=== PATIENT | male | born 1930 | race Caucasian/White ===

== ENCOUNTER 2018-11-22 23:36 | Inpatient (IN) | payer MEDICARE, OTHER ==
[~2018-11-22] VITALS: Ht 172.7 cm; Wt 73.5 kg
[2018-11-22] MEDS ORDERED: piperacillin/tazo 3.375gm/50ml 50 ML IV ONE (23:40)
[2018-11-22] MEDS ORDERED: propofol 1000mg/100ml bottle 100 ML IV PRN (23:41)
[2018-11-22] MEDS ORDERED: propofol 1000mg/100ml bottle 100 ML IV ONE (23:43)
[2018-11-23] VITALS (32 sets, daily range): BP systolic 60–146; BP diastolic 33–89
[2018-11-23 00:36] LABS: ABG BASE EXCESS -4.1 mmol/L (-2.0-3.0); ABG HCO3 21.2 mmol/L (22.0-26.0); ABG OXYGEN SATURATION 95.2 % (95-98); ABG PCO2 (T) 39.7 mmHg (35.0-48.0); ABG PH (T) 7.345 (7.350-7.450); ABG PO2 (T) 81.8 mmHg (83-108); FCOHb 0.7 % (0.5-1.5); FMetHb 0.3 % (0.3-1.12); FO2Hb 94.2 % (94-100); MINUTE VOLUME 7 L/min; PATIENT TEMPERATURE 37.2; PEEP 5 cm H2O; RESPIRATORY RATE 14 b/min; RESPIRATORY RATE (OBSERVED) 16 b/min; TIDAL VOLUME 420 mL; TOTAL HEMOGLOBIN 12.9 G/dl (14.0-18.0)
[2018-11-23 00:39] LABS: BASOPHILS % (AUTO) 0.1 % (0-1); EOSINOPHILS % (AUTO) 0 % (0-6); HEMATOCRIT 39.9 % (42.0-52.0); HEMOGLOBIN 12.9 g/dl (14.0-17.9); LYMPHOCYTES # (AUTO) 0.4 X10'3 (1.1-4.8); MEAN CORPUSCULAR HEMOGLOBIN 29.4 PG (27.0-31.0); MEAN CORPUSCULAR HGB CONC 32.4 g/dL (33.0-36.5); MEAN CORPUSCULAR VOLUME 90.6 FL (78-98); MEAN PLATELET VOLUME 9.2 FL (7.4-10.4); MONOCYTES # (AUTO) 1.2 X10'3 (0-0.9); MONOCYTES % (AUTO) 6.5 % (2-12); NEUTROPHILS # (AUTO) 17.5 X10'3 (1.8-7.7); NEUTROPHILS % (AUTO) 91.4 % (42-75); PLATELET COUNT 167 X10'3 (140-440); RED BLOOD COUNT 4.41 X10'6 (4.70-6.10); RED CELL DISTRIBUTION WIDTH 13.5 % (11.5-14.5); WHITE BLOOD COUNT 19.1 X10'3 (4.5-11.0)
[2018-11-23 00:51] LABS: INR 1.1 INR; PARTIAL THROMBOPLASTIN TIME 29 SECONDS (22-32); PROTHROMBIN TIME 11.4 SECONDS (9.0-12.0)
[2018-11-23 01:05] LABS: ALANINE AMINOTRANSFERASE 212 U/L (12-78); ALBUMIN 2.8 G/DL (3.4-5.0); ALBUMIN/GLOBULIN RATIO 0.8 (1.1-1.5); ALKALINE PHOSPHATASE 290 IU/L (46-116); ANION GAP 9 (8-16); ASPARTATE AMINO TRANSFERASE 239 U/L (10-37); BILIRUBIN,TOTAL 2.9 MG/DL (0.1-1.0); BLOOD UREA NITROGEN 37 MG/DL (7-18); BUN/CREATININE RATIO 18.5 (5.4-32.0); CALCIUM 8.4 MG/DL (8.5-10.1); CHLORIDE 110 MMOL/L (99-107); GLUCOSE 210 MG/DL (70-104); LIPASE 75 U/L (73-393); MAGNESIUM 1.6 MG/DL (1.5-2.4); POTASSIUM 4.1 MMOL/L (3.5-5.1); SODIUM 144 MMOL/L (135-145); TOTAL CARBON DIOXIDE 24.6 MMOL/L (24-32); TOTAL PROTEIN 6.4 G/DL (6.4-8.2); eGFR 32 ML/MIN
[2018-11-23 01:13] LABS: TOTAL CELLS COUNTED 100
[2018-11-23] MEDS ORDERED: midazolam 100mg in NS 100ml 100 ML IV PRN (01:14)
[2018-11-23 01:15] LABS: PLATELET ESTIMATE NORMAL
[2018-11-23] MEDS ORDERED: glucagon, human recombinant 1mg kit SUBCUT PRN (01:15)
[2018-11-23] MEDS ORDERED: acetaminophen 325mg tablet PO PRN ×2 (01:15)
[2018-11-23] MEDS ORDERED: ondansetron/PF 4mg/2ml inj IV PRN (01:15)
[2018-11-23] MEDS ORDERED: acetaminophen 650mg rectal suppository RC PRN (01:15)
[2018-11-23] MEDS ORDERED: MESSAGE TO PHARMACY PO ONE (01:15)
[2018-11-23] MEDS ORDERED: insulin Lispro (HumaLOG) vial - multi-dose SQ SCH (01:15)
[2018-11-23] MEDS ORDERED: dextrose 50%-water 50ml dispensing syringe IV PRN ×2 (01:15)
[2018-11-23] MEDS: pantoprazole 40 MG vial IV SCH ×2 (01:15→07:40)
[2018-11-23] MEDS ORDERED: dextrose ORAL solution 15 GM/59 ML bottle PO PRN ×2 (01:15)
[2018-11-23] MEDS ORDERED: ipratropium/albuterol 3ml nebule NEB PRN (01:15)
--- NOTE | 2018-11-23 01:53 | NUR ---
Received report from LEWIS Paula, in ED.
[2018-11-23 02:02] LABS: HEMOGLOBIN A1C 6.5 % (4.5-6.2)
--- NOTE | 2018-11-23 02:20 | NUR ---
[facility] via [facility] accompanied by Nisa RN, and Oj, CLASS C DRIVER. Pt transferred to [facility] with 4-person assistance and Sheela-Evelin. 2-RN skin assessment completed by LEWIS Conway, and LEWIS Pinto. Pt came from [facility] with a pediatric gould which had been taped to a large gould system. During transfer from [facility] to [facility], this became dislodged. Unable to place larger Fr gould and condom catheter placed on pt.
[2018-11-23] MEDS: normal saline 1000ml 1,000 ML IV SCH ×3 (03:00→23:17)
[2018-11-23 04:06] LABS: ABG BASE EXCESS -4.8 mmol/L (-2.0-3.0); ABG HCO3 20.5 mmol/L (22.0-26.0); ABG OXYGEN SATURATION 96.6 % (95-98); ABG PCO2 (T) 38.6 mmHg (35.0-48.0); ABG PH (T) 7.343 (7.350-7.450); ABG PO2 (T) 97.3 mmHg (83-108); FCOHb 0.1 % (0.5-1.5); FMetHb 0.3 % (0.3-1.12); FO2Hb 96.2 % (94-100); MINUTE VOLUME 5 L/min; PEEP 5 cm H2O; RESPIRATORY RATE 14 b/min; RESPIRATORY RATE (OBSERVED) 14 b/min; TIDAL VOLUME 400 mL; TOTAL HEMOGLOBIN 12.5 G/dl (14.0-18.0)
[2018-11-23] MEDS: FENTANYL-0.9 % NACL/PF 100 ML IV PRN (04:20)
--- NOTE | 2018-11-23 05:40 | NUR ---
BP decreased. Sedation decreased and COLE Arreola, notified. Orders received for IVF bolus and Albumin.
[2018-11-23] MEDS ORDERED: normal saline 1000ml 1,000 ML IV ONE (05:45)
--- NOTE | 2018-11-23 05:48 | NUR ---
IVF bolus initiated. Elba, PLATE FINISHER, rounding on pt and gave verbal order to hold fentanyl at this time.
[2018-11-23] MEDS: albumin (Human) 5% 250ml 250 ML IV ONE ×2 (06:10→06:12)
--- NOTE | 2018-11-23 06:10 | NUR ---
Albumin held at this time, BP improved (see VS flow sheet). Will continue to monitor.
--- NOTE | 2018-11-23 06:32 | NUR ---
Problems reprioritized. Patient report given, questions answered & plan of care reviewed with LEWIS Park.
--- NOTE | 2018-11-23 06:38 | NUR ---
Patient in room CICU 2009. I have received report from LEWIS Pinto and had the opportunity to ask questions and assume patient care.
[2018-11-23] MEDS: docusate sodium 100mg/10ml UD cup PO SCH ×2 (07:40→20:00)
[2018-11-23] MEDS: piperacillin/tazo 3.375gm/50ml 50 ML IV SCH ×3 (07:40→23:48)
[2018-11-23] MEDS ORDERED: ringers solution, lacted 1,000 ML IV ONE (09:15)
[2018-11-23] MEDS ORDERED: albumin (Human) 5% 250ml 250 ML IV ONE (09:25)
[2018-11-23] MEDS ORDERED: iohexol 300 MG/1 ML 50ml polymer IV ONE ×2 (09:45→10:40)
[2018-11-23] MEDS ORDERED: simethicone 40mg/0.6ml oral drops 30ml MC ONE ×2 (09:45→10:40)
[2018-11-23] MEDS ORDERED: glucagon, human recombinant 1mg kit IV PRN (09:45)
[2018-11-23] MEDS ORDERED: LISI-600 PO (10:57)
[2018-11-23] MEDS ORDERED: ASPI-974 PO (10:57)
[2018-11-23] MEDS ORDERED: AMLO2.5T5 PO (10:57)
[2018-11-23] MEDS ORDERED: ATOR10TA70 PO (10:59)
[2018-11-23] MEDS ORDERED: METF500T PO (10:59)
[2018-11-23] MEDS ORDERED: METO-395 PO (10:59)
--- NOTE | 2018-11-23 12:04 | NUR ---
Patient was emergently intubated for respiratory distress at [place] after presenting with confusion and severe SOB per H&P note. Pt is NPO. Recommend: 1. If prolonged intubation and needing nutrition support recommend Vital AF at 65 ml/hr goal to provide total volume 1560 ml, 1872 cals, 117 g protein, and 1265 ml free water. 2. If TF, additional water flush per MD 3. When extubated, advance diet as medically indicated to heart healthy 4. Wt per rx Addendum: 11/23/18 at [address] Amended: Links added.
[2018-11-23 12:35] LABS: BASOPHILS % (AUTO) 0.1 % (0-1); EOSINOPHILS % (AUTO) 0.1 % (0-6); HEMATOCRIT 37.7 % (42.0-52.0); HEMOGLOBIN 12.6 g/dl (14.0-17.9); LYMPHOCYTES # (AUTO) 0.7 X10'3 (1.1-4.8); LYMPHOCYTES % (AUTO) 4.4 % (21-51); MEAN CORPUSCULAR HGB CONC 33.4 g/dL (33.0-36.5); MEAN CORPUSCULAR VOLUME 89.9 FL (78-98); MEAN PLATELET VOLUME 9.2 FL (7.4-10.4); MONOCYTES # (AUTO) 1.6 X10'3 (0-0.9); MONOCYTES % (AUTO) 10.3 % (2-12); NEUTROPHILS # (AUTO) 13.3 X10'3 (1.8-7.7); NEUTROPHILS % (AUTO) 85.1 % (42-75); PLATELET COUNT 144 X10'3 (140-440); RED BLOOD COUNT 4.19 X10'6 (4.70-6.10); WHITE BLOOD COUNT 15.6 X10'3 (4.5-11.0)
[2018-11-23 12:50] LABS: ALANINE AMINOTRANSFERASE 169 U/L (12-78); ALBUMIN 2.7 G/DL (3.4-5.0); ALBUMIN/GLOBULIN RATIO 0.8 (1.1-1.5); ALKALINE PHOSPHATASE 230 IU/L (46-116); ANION GAP 9 (8-16); ASPARTATE AMINO TRANSFERASE 135 U/L (10-37); BILIRUBIN,TOTAL 3.8 MG/DL (0.1-1.0); BLOOD UREA NITROGEN 37 MG/DL (7-18); BUN/CREATININE RATIO 19.7 (5.4-32.0); CALCIUM 8.3 MG/DL (8.5-10.1); CHLORIDE 112 MMOL/L (99-107); CREATININE 1.88 MG/DL (0.60-1.10); GLUCOSE 143 MG/DL (70-104); POTASSIUM 4.7 MMOL/L (3.5-5.1); SODIUM 147 MMOL/L (135-145); TOTAL CARBON DIOXIDE 25.7 MMOL/L (24-32); TOTAL PROTEIN 6.1 G/DL (6.4-8.2); eGFR 34 ML/MIN
--- NOTE | 2018-11-23 18:15 | NUR ---
Patient in room CICU 2009. I have received report from LEWIS Park, and had the opportunity to ask questions and assume patient care.
[2018-11-23] MEDS ORDERED: desflurane 240ml liquid inh. IH ONE (18:20)
--- NOTE | 2018-11-23 18:23 | NUR ---
GI lab crew arrived to prepare pt for ERCP.
--- NOTE | 2018-11-23 18:30 | NUR ---
Problems reprioritized. Patient report given, questions answered & plan of care reviewed with LEWIS Pinto.
[2018-11-23] MEDS ORDERED: iohexol 300 MG/1 ML 50ml polymer ONE (18:31)
--- NOTE | 2018-11-23 18:31 | NUR ---
[facility] with [facility]
[2018-11-23] MEDS ORDERED: fentaNYL/PF 50MCG/1 ML 2ML syringe ONE (18:34)
[2018-11-23] MEDS ORDERED: MIDAZolam 5mg/5ml vial ONE (19:10)
--- NOTE | 2018-11-23 19:29 | NUR ---
Pt returned to CICU 2009 via [facility] pulmonary bed with OR crew, placed back on mechanical ventilator. Dri-flows and draw sheet placed beneath pt. OGT removed in OR for ERCP procedure, new 16 Fr [place] sump OGT placed and set to LIS with brown coffee ground contents present. Per OR staff, condom cath possibly leaking. Linens beneath condom cath clean and dry, dri-flow placed beneath. Fentanyl and versed restarted for pain management. Per TAMALE MAKER, two large bile stones removed and copius purulent material noted.
[2018-11-23] MEDS: insulin glargine (Lantus) pen - multi-dose SQ SCH (20:06)
[2018-11-23] MEDS: heparin, porcine 5000 units/ml vial SQ SCH (20:07)
[2018-11-23 21:15] LABS: BASOPHILS % (AUTO) 0.1 % (0-1); EOSINOPHILS % (AUTO) 0.2 % (0-6); LYMPHOCYTES # (AUTO) 0.5 X10'3 (1.1-4.8); LYMPHOCYTES % (AUTO) 3.5 % (21-51); MEAN CORPUSCULAR HEMOGLOBIN 29.9 PG (27.0-31.0); MEAN CORPUSCULAR HGB CONC 33.4 g/dL (33.0-36.5); MEAN CORPUSCULAR VOLUME 89.4 FL (78-98); MEAN PLATELET VOLUME 9.6 FL (7.4-10.4); MONOCYTES # (AUTO) 0.9 X10'3 (0-0.9); MONOCYTES % (AUTO) 6.6 % (2-12); NEUTROPHILS # (AUTO) 12.4 X10'3 (1.8-7.7); NEUTROPHILS % (AUTO) 89.6 % (42-75); PLATELET COUNT 138 X10'3 (140-440); RED BLOOD COUNT 4.02 X10'6 (4.70-6.10); WHITE BLOOD COUNT 13.9 X10'3 (4.5-11.0)
[2018-11-23 21:23] LABS: ALANINE AMINOTRANSFERASE 137 U/L (12-78); ALBUMIN 2.5 G/DL (3.4-5.0); ALKALINE PHOSPHATASE 217 IU/L (46-116); ANION GAP 10 (8-16); ASPARTATE AMINO TRANSFERASE 99 U/L (10-37); BILIRUBIN,TOTAL 4.2 MG/DL (0.1-1.0); BLOOD UREA NITROGEN 31 MG/DL (7-18); CALCIUM 8.4 MG/DL (8.5-10.1); CHLORIDE 112 MMOL/L (99-107); CREATININE 1.72 MG/DL (0.60-1.10); GLUCOSE 144 MG/DL (70-104); SODIUM 147 MMOL/L (135-145); TOTAL CARBON DIOXIDE 24.9 MMOL/L (24-32); eGFR 38 ML/MIN
[2018-11-23 22:28] LABS: ALBUMIN/GLOBULIN RATIO 0.7 (1.1-1.5); TOTAL PROTEIN 5.9 G/DL (6.4-8.2)
[2018-11-24] VITALS (24 sets, daily range): BP systolic 106–163; BP diastolic 65–96
[2018-11-24] MEDS: mineral oil/petrolatum ophthal oint EACHEYE SCH ×4 (02:03→20:25)
[2018-11-24 02:33] LABS: BASOPHILS % (AUTO) 0.1 % (0-1); EOSINOPHILS % (AUTO) 0.2 % (0-6); HEMATOCRIT 34.7 % (42.0-52.0); HEMOGLOBIN 11.5 g/dl (14.0-17.9); LYMPHOCYTES # (AUTO) 0.6 X10'3 (1.1-4.8); LYMPHOCYTES % (AUTO) 4.8 % (21-51); MEAN CORPUSCULAR HEMOGLOBIN 30.1 PG (27.0-31.0); MEAN CORPUSCULAR HGB CONC 33.2 g/dL (33.0-36.5); MEAN CORPUSCULAR VOLUME 90.6 FL (78-98); MEAN PLATELET VOLUME 9.3 FL (7.4-10.4); MONOCYTES # (AUTO) 0.7 X10'3 (0-0.9); MONOCYTES % (AUTO) 5.9 % (2-12); NEUTROPHILS # (AUTO) 10.7 X10'3 (1.8-7.7); PLATELET COUNT 138 X10'3 (140-440); RED BLOOD COUNT 3.83 X10'6 (4.70-6.10); RED CELL DISTRIBUTION WIDTH 13.9 % (11.5-14.5); WHITE BLOOD COUNT 12.1 X10'3 (4.5-11.0)
[2018-11-24 02:51] LABS: ALANINE AMINOTRANSFERASE 129 U/L (12-78); ALBUMIN 2.4 G/DL (3.4-5.0); ALBUMIN/GLOBULIN RATIO 0.7 (1.1-1.5); ALKALINE PHOSPHATASE 215 IU/L (46-116); ANION GAP 9 (8-16); ASPARTATE AMINO TRANSFERASE 87 U/L (10-37); BLOOD UREA NITROGEN 30 MG/DL (7-18); BUN/CREATININE RATIO 18.4 (5.4-32.0); CALCIUM 8.4 MG/DL (8.5-10.1); CHLORIDE 113 MMOL/L (99-107); CREATININE 1.63 MG/DL (0.60-1.10); GLUCOSE 128 MG/DL (70-104); MAGNESIUM 1.7 MG/DL (1.5-2.4); POTASSIUM 3.9 MMOL/L (3.5-5.1); SODIUM 147 MMOL/L (135-145); TOTAL CARBON DIOXIDE 24.6 MMOL/L (24-32); TOTAL PROTEIN 5.8 G/DL (6.4-8.2); eGFR 40 ML/MIN
[2018-11-24 02:55] LABS: PROTHROMBIN TIME 13.1 SECONDS (9.0-12.0)
[2018-11-24 02:56] LABS: INR 1.3 INR; PARTIAL THROMBOPLASTIN TIME 33 SECONDS (22-32)
[2018-11-24 03:31] LABS: ABG HCO3 22.4 mmol/L (22.0-26.0); ABG OXYGEN SATURATION 96.6 % (95-98); ABG PCO2 (T) 41.3 mmHg (35.0-48.0); ABG PH (T) 7.352 (7.350-7.450); ABG PO2 (T) 95.4 mmHg (83-108); FMetHb 0.3 % (0.3-1.12); FO2Hb 96.3 % (94-100); MINUTE VOLUME 6 L/min; PEEP 5 cm H2O; RESPIRATORY RATE 14 b/min; RESPIRATORY RATE (OBSERVED) 16 b/min; TOTAL HEMOGLOBIN 12.3 G/dl (14.0-18.0)
--- NOTE | 2018-11-24 06:21 | NUR ---
Problems reprioritized. Patient report given, questions answered & plan of care reviewed with LEWIS Park.
[2018-11-24] MEDS: normal saline 1000ml 1,000 ML IV SCH (07:14)
[2018-11-24] MEDS ORDERED: metoprolol succinate 25mg (24-HOUR) SR. Tablet PO SCH (08:00)
[2018-11-24] MEDS: heparin, porcine 5000 units/ml vial SQ SCH ×2 (08:00→20:25)
[2018-11-24] MEDS: docusate sodium 100mg/10ml UD cup PO SCH ×2 (08:05→20:24)
[2018-11-24] MEDS: piperacillin/tazo 3.375gm/50ml 50 ML IV SCH ×2 (08:05→16:28)
[2018-11-24] MEDS: pantoprazole 40 MG vial IV SCH (08:05)
[2018-11-24] MEDS: aspirin 325mg tablet PO SCH (08:05)
[2018-11-24] MEDS: amLODIPine 2.5mg tablet PO SCH (08:29)
--- NOTE | 2018-11-24 10:36 | NUR ---
Received call from [facility]'s reporting + blood culture, gm negative rods from aerobic bottle on 11/22. Reported information to Dr. Hdez. No new orders at this time. Pt receiving zosyn q8h.
--- NOTE | 2018-11-24 10:53 | NUR ---
DM consult: Patient's A1c is 6.5; DM ed not warranted at this time. TF consult: Pt remains intubated and sedated. Recommendations below. Will continue to follow. Recommend: 1. Continuous Vital AF with goal rate of 65 ml/hr to provide total volume 1560 ml, 1872 cals, 117 g protein, and 1265 ml free water. 2. Additional water flush per MD 3. Prealbumin q / 4. Daily wt 5. When extubated, advance diet as medically indicated to heart healthy CHO controlled Addendum: 11/24/18 at [address] Amended: Links added.
--- NOTE | 2018-11-24 18:21 | NUR ---
Problems reprioritized. Patient report given, questions answered & plan of care reviewed with LEWIS Crowley.
--- NOTE | 2018-11-24 18:30 | NUR ---
Patient in room CICU 2009. I have received report from Vivian SAUCEDO and had the opportunity to ask questions and assume patient care. Pt on vent at 40%, spo2 at 98%, pt not on sedation at this time, IV fluids infusing per provider orders via PIV, see interventions and IV flowsheet for further information. All monitoring alarms audible. Will continue to monitor.
[2018-11-24] MEDS: atorvastatin 10mg tablet PO SCH (20:24)
[2018-11-24] MEDS: insulin glargine (Lantus) pen - multi-dose SQ SCH (21:00)
[2018-11-25] VITALS (24 sets, daily range): BP systolic 108–157; BP diastolic 64–94
[2018-11-25] MEDS: piperacillin/tazo 3.375gm/50ml 50 ML IV SCH ×3 (00:13→16:02)
[2018-11-25] MEDS ORDERED: lactulose 20gm/30ml cup PO PRN (01:15)
[2018-11-25] MEDS: mineral oil/petrolatum ophthal oint EACHEYE SCH ×4 (02:00→20:55)
[2018-11-25 03:30] LABS: ABG BASE EXCESS -0.2 mmol/L (-2.0-3.0); ABG HCO3 23.8 mmol/L (22.0-26.0); ABG OXYGEN SATURATION 97.1 % (95-98); ABG PCO2 (T) 38.4 mmHg (35.0-48.0); ABG PH (T) 7.415 (7.350-7.450); ABG PO2 (T) 104.2 mmHg (83-108); FCOHb 0.3 % (0.5-1.5); FMetHb 0.3 % (0.3-1.12); FO2Hb 96.5 % (94-100); MINUTE VOLUME 6 L/min; PATIENT TEMPERATURE 38.2; PEEP 5 cm H2O; RESPIRATORY RATE (OBSERVED) 16 b/min
[2018-11-25 06:18] LABS: BASOPHILS % (AUTO) 0.2 % (0-1); EOSINOPHILS # (AUTO) 0.1 X10'3 (0-0.9); EOSINOPHILS % (AUTO) 0.9 % (0-6); HEMATOCRIT 34.6 % (42.0-52.0); HEMOGLOBIN 11.8 g/dl (14.0-17.9); LYMPHOCYTES # (AUTO) 0.6 X10'3 (1.1-4.8); LYMPHOCYTES % (AUTO) 7.2 % (21-51); MEAN CORPUSCULAR HEMOGLOBIN 30.1 PG (27.0-31.0); MEAN CORPUSCULAR VOLUME 88.6 FL (78-98); MEAN PLATELET VOLUME 9.6 FL (7.4-10.4); MONOCYTES # (AUTO) 0.6 X10'3 (0-0.9); MONOCYTES % (AUTO) 6.3 % (2-12); NEUTROPHILS # (AUTO) 7.5 X10'3 (1.8-7.7); NEUTROPHILS % (AUTO) 85.4 % (42-75); PLATELET COUNT 143 X10'3 (140-440); RED BLOOD COUNT 3.91 X10'6 (4.70-6.10); RED CELL DISTRIBUTION WIDTH 13.8 % (11.5-14.5); WHITE BLOOD COUNT 8.8 X10'3 (4.5-11.0)
--- NOTE | 2018-11-25 06:30 | NUR ---
Problems reprioritized. Patient report given, questions answered & plan of care reviewed with Jeff RN.
[2018-11-25 06:33] LABS: INR 1.1 INR; PARTIAL THROMBOPLASTIN TIME 31 SECONDS (22-32); PROTHROMBIN TIME 11.1 SECONDS (9.0-12.0)
[2018-11-25 06:47] LABS: ALANINE AMINOTRANSFERASE 87 U/L (12-78); ALBUMIN 2.2 G/DL (3.4-5.0); ALBUMIN/GLOBULIN RATIO 0.6 (1.1-1.5); ALKALINE PHOSPHATASE 245 IU/L (46-116); ANION GAP 10 (8-16); ASPARTATE AMINO TRANSFERASE 45 U/L (10-37); BILIRUBIN,TOTAL 2.8 MG/DL (0.1-1.0); BLOOD UREA NITROGEN 23 MG/DL (7-18); BUN/CREATININE RATIO 18.9 (5.4-32.0); CALCIUM 8.5 MG/DL (8.5-10.1); CHLORIDE 108 MMOL/L (99-107); CREATININE 1.22 MG/DL (0.60-1.10); GLUCOSE 161 MG/DL (70-104); MAGNESIUM 1.7 MG/DL (1.5-2.4); POTASSIUM 3.5 MMOL/L (3.5-5.1); SODIUM 142 MMOL/L (135-145); TOTAL CARBON DIOXIDE 24.3 MMOL/L (24-32); TOTAL PROTEIN 5.8 G/DL (6.4-8.2); eGFR 56 ML/MIN
[2018-11-25 07:01] LABS: PHOSPHORUS 1.1 MG/DL (2.3-4.5)
[2018-11-25] MEDS ORDERED: potassium Cl 20 mEq SR tablet PO PRN ×2 (07:40)
[2018-11-25] MEDS ORDERED: potassium phosphate inj 30 MMOL in normal saline 500ml IV soln 490 ML IV ONE (07:50)
[2018-11-25] MEDS ORDERED: POTASSIUM 40MEQ/500ML NS *****PERIPHERAL LINE REPLACE IV PRN (08:00)
[2018-11-25] MEDS: docusate sodium 100mg/10ml UD cup PO SCH ×2 (08:31→20:54)
[2018-11-25] MEDS: metoprolol tartrate 25mg tablet PO SCH ×2 (08:32→20:54)
[2018-11-25] MEDS: aspirin 325mg tablet PO SCH (08:32)
[2018-11-25] MEDS: Neutra Phos packet PO SCH ×3 (08:32→20:54)
[2018-11-25] MEDS: amLODIPine 2.5mg tablet PO SCH (08:32)
[2018-11-25] MEDS: heparin, porcine 5000 units/ml vial SQ SCH ×2 (08:33→20:55)
[2018-11-25] MEDS: pantoprazole 40 MG vial IV SCH (08:33)
[2018-11-25] MEDS: K, MAG and/or Phos replacement - Verify level? MC SCH (08:34)
[2018-11-25] MEDS ORDERED: magnesium 4gm in 100ml NS 100 ML IV ONE (09:25)
[2018-11-25] MEDS: insulin regular, human vial - multi-dose SQ SCH ×2 (12:28→21:08)
[2018-11-25 17:43] LABS: MAGNESIUM 2.7 MG/DL (1.5-2.4); PHOSPHORUS 3.1 MG/DL (2.3-4.5)
[2018-11-25 17:44] LABS: POTASSIUM 3.7 MMOL/L (3.5-5.1)
--- NOTE | 2018-11-25 17:50 | NUR ---
spoke to lab at [facility]. No growth as of day 2 on blood cultures. Will follow up again tomorrow for final results.
--- NOTE | 2018-11-25 18:20 | NUR ---
Patient in room CICU 2009. I have received report from Jeff SAUCEDO and had the opportunity to ask questions and assume patient care. Pt resting in bed, intubated via ETT vent CPAP mode FiO2 30%, spo2 97%, no s/s of distress, no c/o pain, see interventions for more information. All monitoring alarms audible. Will continue to monitor.
[2018-11-25] MEDS ORDERED: LIDOcaine 2% 10ml TOPICAL JELLY (Urojet) MM ONE (19:20)
[2018-11-25] MEDS: FENTANYL-0.9 % NACL/PF 100 ML IV PRN (19:44)
[2018-11-25] MEDS ORDERED: furosemide 20 MG/2 ML vial IV ONE (20:00)
[2018-11-25] MEDS: atorvastatin 10mg tablet PO SCH (20:54)
[2018-11-25] MEDS: insulin glargine (Lantus) pen - multi-dose SQ SCH (21:09)
--- NOTE | 2018-11-25 21:36 | NUR ---
Attempted to insert cath, coude with urojet, unsuccessful, professor in family studies attempted unsuccessful. Condom cath applied.
[2018-11-26] VITALS (24 sets, daily range): BP systolic 117–149; BP diastolic 63–89
[2018-11-26] MEDS: piperacillin/tazo 3.375gm/50ml 50 ML IV SCH ×3 (00:19→16:54)
[2018-11-26] MEDS: mineral oil/petrolatum ophthal oint EACHEYE SCH ×3 (02:09→14:00)
[2018-11-26] MEDS: insulin regular, human vial - multi-dose SQ SCH (02:12)
[2018-11-26 04:56] LABS: ABG BASE EXCESS 0.3 mmol/L (-2.0-3.0); ABG HCO3 23.4 mmol/L (22.0-26.0); ABG OXYGEN SATURATION 94.6 % (95-98); ABG PCO2 (T) 32.5 mmHg (35.0-48.0); ABG PH (T) 7.474 (7.350-7.450); ABG PO2 (T) 71.1 mmHg (83-108); FCOHb 0.3 % (0.5-1.5); FMetHb 0.3 % (0.3-1.12); MINUTE VOLUME 8 L/min; PATIENT TEMPERATURE 36.8; PEEP 5 cm H2O; RESPIRATORY RATE (OBSERVED) 13 b/min; TOTAL HEMOGLOBIN 12.4 G/dl (14.0-18.0)
[2018-11-26 05:26] LABS: BASOPHILS % (AUTO) 0.1 % (0-1); EOSINOPHILS # (AUTO) 0.1 X10'3 (0-0.9); EOSINOPHILS % (AUTO) 1.6 % (0-6); HEMATOCRIT 36.1 % (42.0-52.0); HEMOGLOBIN 12.2 g/dl (14.0-17.9); LYMPHOCYTES # (AUTO) 0.8 X10'3 (1.1-4.8); LYMPHOCYTES % (AUTO) 12.9 % (21-51); MEAN CORPUSCULAR HGB CONC 33.8 g/dL (33.0-36.5); MEAN PLATELET VOLUME 9.1 FL (7.4-10.4); MONOCYTES # (AUTO) 0.5 X10'3 (0-0.9); MONOCYTES % (AUTO) 8.3 % (2-12); NEUTROPHILS # (AUTO) 4.7 X10'3 (1.8-7.7); NEUTROPHILS % (AUTO) 77.1 % (42-75); PLATELET COUNT 172 X10'3 (140-440); RED BLOOD COUNT 4.06 X10'6 (4.70-6.10); RED CELL DISTRIBUTION WIDTH 13.9 % (11.5-14.5); WHITE BLOOD COUNT 6.1 X10'3 (4.5-11.0)
[2018-11-26 05:41] LABS: ALANINE AMINOTRANSFERASE 77 U/L (12-78); ALBUMIN 2.4 G/DL (3.4-5.0); ALBUMIN/GLOBULIN RATIO 0.6 (1.1-1.5); ALKALINE PHOSPHATASE 263 IU/L (46-116); ANION GAP 9 (8-16); ASPARTATE AMINO TRANSFERASE 42 U/L (10-37); BLOOD UREA NITROGEN 22 MG/DL (7-18); BUN/CREATININE RATIO 15.7 (5.4-32.0); CALCIUM 8.3 MG/DL (8.5-10.1); CHLORIDE 105 MMOL/L (99-107); GLUCOSE 107 MG/DL (70-104); PHOSPHORUS 2.4 MG/DL (2.3-4.5); POTASSIUM 3.2 MMOL/L (3.5-5.1); SODIUM 142 MMOL/L (135-145); TOTAL CARBON DIOXIDE 27.7 MMOL/L (24-32); TOTAL PROTEIN 6.5 G/DL (6.4-8.2); eGFR 48 ML/MIN
[2018-11-26 05:43] LABS: PARTIAL THROMBOPLASTIN TIME 31 SECONDS (22-32); PROTHROMBIN TIME 10.2 SECONDS (9.0-12.0)
--- NOTE | 2018-11-26 06:28 | NUR ---
Problems reprioritized. Patient report given, questions answered & plan of care reviewed with Jeff RN.
[2018-11-26] MEDS: heparin, porcine 5000 units/ml vial SQ SCH ×2 (08:00→20:53)
[2018-11-26] MEDS: docusate sodium 100mg/10ml UD cup PO SCH ×2 (08:00→20:00)
[2018-11-26] MEDS: Neutra Phos packet PO SCH ×2 (08:00→13:00)
[2018-11-26] MEDS: amLODIPine 2.5mg tablet PO SCH (08:00)
[2018-11-26] MEDS: aspirin 325mg tablet PO SCH (08:00)
[2018-11-26] MEDS: metoprolol tartrate 25mg tablet PO SCH ×2 (08:00→20:00)
[2018-11-26] MEDS: K, MAG and/or Phos replacement - Verify level? MC SCH (08:00)
[2018-11-26] MEDS: pantoprazole 40 MG vial IV SCH (08:00)
--- NOTE | 2018-11-26 09:24 | NUR ---
not given. pt received lasix overnight for fluid overload. Planning to extubated today Addendum: 11/26/18 at 0925 by Mckay Coats RN Amended: Links added.
[2018-11-26] MEDS ORDERED: potassium Cl oral solution 20 MEQ/15 ML PO PRN (09:39)
--- NOTE | 2018-11-26 18:25 | NUR ---
Patient in room CICU 2009. I have received report from Jeff SAUCEDO and had the opportunity to ask questions and assume patient care. Pt resting in bed on 2LNC spo2 at 99%, no c/o pain, no s/s of distress, see interventions for more information. All monitoring alarms audible. Will continue to monitor.
[2018-11-26] MEDS: atorvastatin 10mg tablet PO SCH (20:53)
[2018-11-26] MEDS: insulin glargine (Lantus) pen - multi-dose SQ SCH (21:00)
[2018-11-27] VITALS (23 sets, daily range): BP systolic 101–140; BP diastolic 64–84
[2018-11-27] MEDS: piperacillin/tazo 3.375gm/50ml 50 ML IV SCH ×4 (00:04→23:23)
[2018-11-27 05:02] LABS: BASOPHILS % (AUTO) 0.2 % (0-1); EOSINOPHILS # (AUTO) 0.2 X10'3 (0-0.9); HEMATOCRIT 35.8 % (42.0-52.0); HEMOGLOBIN 12.2 g/dl (14.0-17.9); LYMPHOCYTES # (AUTO) 0.9 X10'3 (1.1-4.8); MEAN CORPUSCULAR HEMOGLOBIN 30.1 PG (27.0-31.0); MEAN CORPUSCULAR HGB CONC 33.9 g/dL (33.0-36.5); MEAN CORPUSCULAR VOLUME 88.7 FL (78-98); MONOCYTES # (AUTO) 0.6 X10'3 (0-0.9); MONOCYTES % (AUTO) 9.9 % (2-12); NEUTROPHILS # (AUTO) 4.6 X10'3 (1.8-7.7); NEUTROPHILS % (AUTO) 72.9 % (42-75); PLATELET COUNT 170 X10'3 (140-440); RED BLOOD COUNT 4.04 X10'6 (4.70-6.10); RED CELL DISTRIBUTION WIDTH 13.7 % (11.5-14.5); WHITE BLOOD COUNT 6.4 X10'3 (4.5-11.0)
[2018-11-27 05:16] LABS: PARTIAL THROMBOPLASTIN TIME 29 SECONDS (22-32); PROTHROMBIN TIME 10.1 SECONDS (9.0-12.0)
[2018-11-27 05:17] LABS: ALANINE AMINOTRANSFERASE 87 U/L (12-78); ALBUMIN 2.2 G/DL (3.4-5.0); ALBUMIN/GLOBULIN RATIO 0.6 (1.1-1.5); ALKALINE PHOSPHATASE 228 IU/L (46-116); ANION GAP 5 (8-16); ASPARTATE AMINO TRANSFERASE 87 U/L (10-37); BILIRUBIN,TOTAL 1.6 MG/DL (0.1-1.0); BLOOD UREA NITROGEN 22 MG/DL (7-18); BUN/CREATININE RATIO 15.8 (5.4-32.0); CALCIUM 8.6 MG/DL (8.5-10.1); CHLORIDE 106 MMOL/L (99-107); CREATININE 1.39 MG/DL (0.60-1.10); GLUCOSE 122 MG/DL (70-104); MAGNESIUM 1.9 MG/DL (1.5-2.4); POTASSIUM 3.7 MMOL/L (3.5-5.1); SODIUM 141 MMOL/L (135-145); TOTAL CARBON DIOXIDE 29.7 MMOL/L (24-32); TOTAL PROTEIN 6.2 G/DL (6.4-8.2); eGFR 48 ML/MIN
--- NOTE | 2018-11-27 06:31 | NUR ---
Problems reprioritized. Patient report given, questions answered & plan of care reviewed with Elida SAUCEDO.
--- NOTE | 2018-11-27 06:41 | NUR ---
Patient in room CICU 2009. I have received report from Carline and had the opportunity to ask questions and assume patient care.
[2018-11-27] MEDS: K, MAG and/or Phos replacement - Verify level? MC SCH (06:43)
[2018-11-27] MEDS: metoprolol tartrate 25mg tablet PO SCH ×2 (06:59→20:00)
[2018-11-27] MEDS: docusate sodium 100mg/10ml UD cup PO SCH ×2 (07:16→20:44)
[2018-11-27] MEDS: heparin, porcine 5000 units/ml vial SQ SCH ×2 (07:16→20:44)
[2018-11-27] MEDS: pantoprazole 40 MG vial IV SCH (07:16)
[2018-11-27] MEDS: amLODIPine 2.5mg tablet PO SCH (07:16)
[2018-11-27] MEDS: aspirin 325mg tablet PO SCH (07:16)
[2018-11-27] MEDS: lisinopril 5mg tablet PO SCH (11:25)
--- NOTE | 2018-11-27 14:02 | NUR ---
Reassessment: Patient is extubated, tolerating clear liquid diet since yesterday. He is s/p ERCP with two stones removed. Recommend: 1. advance diet as medically indicated to heart healthy, CHO controlled 2. monitor need for ONS 3. Wt per rx Addendum: 11/27/18 at [address] Amended: Links added.
--- NOTE | 2018-11-27 18:24 | NUR ---
Problems reprioritized. Patient report given, questions answered & plan of care reviewed with Yassine.
--- NOTE | 2018-11-27 18:28 | NUR ---
Patient in room CICU 2009. I have received report from Elida SAUCEDO and had the opportunity to ask questions and assume patient care. Patient sitting up in chair eating dinner, pleasant and offering no complaints at this time. HR in 70s in sinus rhythm, BP 146/86. Will continue to monitor patient.
[2018-11-27] MEDS: atorvastatin 10mg tablet PO SCH (20:44)
[2018-11-27] MEDS: insulin glargine (Lantus) pen - multi-dose SQ SCH (21:00)
--- NOTE | 2018-11-27 21:10 | NUR ---
Patient in room CICU 2009. I have received report from REGIONAL PRODUCTION MANAGER and had the opportunity to ask questions and assume patient care.
--- NOTE | 2018-11-27 21:30 | NUR ---
Problems reprioritized. Patient report given, questions answered & plan of care reviewed with Diane SAUCEDO. Patient transferred to room 349A via wheelchair in stable condition, on room air. Patient assisted to new bed with two person assist. Belongings at bedside.
--- NOTE | 2018-11-27 22:29 | NUR ---
I have reviewed the physical assessment findings charted by the ICU bedside RN and I agree thus far with findings. Any changes will be noted in physical assessment.
[2018-11-28] VITALS: BP 121/79
[2018-11-28 05:05] LABS: BASOPHILS % (AUTO) 0.4 % (0-1); EOSINOPHILS # (AUTO) 0.2 X10'3 (0-0.9); EOSINOPHILS % (AUTO) 3.5 % (0-6); HEMATOCRIT 33.5 % (42.0-52.0); HEMOGLOBIN 11.4 g/dl (14.0-17.9); LYMPHOCYTES # (AUTO) 1.2 X10'3 (1.1-4.8); LYMPHOCYTES % (AUTO) 20.4 % (21-51); MEAN CORPUSCULAR HEMOGLOBIN 30.1 PG (27.0-31.0); MEAN CORPUSCULAR HGB CONC 33.9 g/dL (33.0-36.5); MEAN CORPUSCULAR VOLUME 88.8 FL (78-98); MEAN PLATELET VOLUME 8.6 FL (7.4-10.4); MONOCYTES # (AUTO) 0.7 X10'3 (0-0.9); MONOCYTES % (AUTO) 12.7 % (2-12); NEUTROPHILS # (AUTO) 3.7 X10'3 (1.8-7.7); PLATELET COUNT 181 X10'3 (140-440); RED BLOOD COUNT 3.77 X10'6 (4.70-6.10); RED CELL DISTRIBUTION WIDTH 13.3 % (11.5-14.5); WHITE BLOOD COUNT 5.9 X10'3 (4.5-11.0)
[2018-11-28 05:20] LABS: ALANINE AMINOTRANSFERASE 91 U/L (12-78); ALBUMIN 2.2 G/DL (3.4-5.0); ALBUMIN/GLOBULIN RATIO 0.6 (1.1-1.5); ALKALINE PHOSPHATASE 198 IU/L (46-116); ANION GAP 6 (8-16); ASPARTATE AMINO TRANSFERASE 80 U/L (10-37); BILIRUBIN,TOTAL 1.2 MG/DL (0.1-1.0); BLOOD UREA NITROGEN 23 MG/DL (7-18); BUN/CREATININE RATIO 15.3 (5.4-32.0); CALCIUM 8.9 MG/DL (8.5-10.1); CHLORIDE 107 MMOL/L (99-107); GLUCOSE 121 MG/DL (70-104); PHOSPHORUS 2.8 MG/DL (2.3-4.5); POTASSIUM 3.6 MMOL/L (3.5-5.1); SODIUM 142 MMOL/L (135-145); TOTAL CARBON DIOXIDE 29.1 MMOL/L (24-32); TOTAL PROTEIN 5.9 G/DL (6.4-8.2); eGFR 44 ML/MIN
[2018-11-28 05:21] LABS: PARTIAL THROMBOPLASTIN TIME 28 SECONDS (22-32); PROTHROMBIN TIME 10.3 SECONDS (9.0-12.0)
--- NOTE | 2018-11-28 06:37 | NUR ---
Problems reprioritized. Patient report given, questions answered & plan of care reviewed with LEWIS Pérez.
[2018-11-28] MEDS: K, MAG and/or Phos replacement - Verify level? MC SCH (06:48)
[2018-11-28 07:00] VITALS: BP 133/82
--- NOTE | 2018-11-28 07:00 | NUR ---
Patient in room [facility] 349. I have received report from EMILY and had the opportunity to ask questions and assume patient care. Addendum: 11/28/18 at 0912 by Elisa White RN Amended: Links added.
[2018-11-28] MEDS: piperacillin/tazo 3.375gm/50ml 50 ML IV SCH ×2 (08:31→16:02)
[2018-11-28] MEDS: pantoprazole 40 MG vial IV SCH (08:33)
[2018-11-28] MEDS: aspirin 325mg tablet PO SCH (08:35)
[2018-11-28] MEDS: metoprolol tartrate 25mg tablet PO SCH ×2 (08:35→20:46)
[2018-11-28] MEDS: lisinopril 5mg tablet PO SCH (08:36)
[2018-11-28] MEDS: heparin, porcine 5000 units/ml vial SQ SCH ×2 (08:36→20:46)
[2018-11-28] MEDS: docusate sodium 100mg/10ml UD cup PO SCH ×2 (08:36→20:45)
[2018-11-28] MEDS: amLODIPine 2.5mg tablet PO SCH (08:36)
[2018-11-28 11:21] VITALS: BP 139/88
--- NOTE | 2018-11-28 18:17 | NUR ---
Problems reprioritized. Patient report given, questions answered & plan of care reviewed with Addendum: 11/28/18 at 1817 by Elisa White RN Amended: Links added.
[2018-11-28 20:00] VITALS: BP 116/72
[2018-11-28] MEDS: atorvastatin 10mg tablet PO SCH (20:46)
[2018-11-28] MEDS: insulin glargine (Lantus) pen - multi-dose SQ SCH (21:00)
[2018-11-29] VITALS: BP 146/88
[2018-11-29] MEDS: piperacillin/tazo 3.375gm/50ml 50 ML IV SCH ×2 (00:34→08:48)
--- NOTE | 2018-11-29 02:25 | NUR ---
Pt dislodged one IV from arm. Had inc void. Pressure held for several minutes. Pt and second IV cleansed and linens changed. Reoriented pt to time and place as he was exhibiting signs of confusion. Pt agreeable to get back into bed. Will continue to monitor.
[2018-11-29 05:47] LABS: BASOPHILS % (AUTO) 0.2 % (0-1); EOSINOPHILS # (AUTO) 0.2 X10'3 (0-0.9); EOSINOPHILS % (AUTO) 3.7 % (0-6); HEMATOCRIT 35.8 % (42.0-52.0); LYMPHOCYTES # (AUTO) 1.3 X10'3 (1.1-4.8); LYMPHOCYTES % (AUTO) 22.4 % (21-51); MEAN CORPUSCULAR HEMOGLOBIN 29.8 PG (27.0-31.0); MEAN CORPUSCULAR HGB CONC 33.6 g/dL (33.0-36.5); MEAN CORPUSCULAR VOLUME 88.8 FL (78-98); MEAN PLATELET VOLUME 8.7 FL (7.4-10.4); MONOCYTES # (AUTO) 0.7 X10'3 (0-0.9); MONOCYTES % (AUTO) 11.8 % (2-12); NEUTROPHILS # (AUTO) 3.7 X10'3 (1.8-7.7); NEUTROPHILS % (AUTO) 61.9 % (42-75); PLATELET COUNT 216 X10'3 (140-440); RED BLOOD COUNT 4.04 X10'6 (4.70-6.10); RED CELL DISTRIBUTION WIDTH 13.6 % (11.5-14.5)
[2018-11-29 05:52] LABS: ALANINE AMINOTRANSFERASE 93 U/L (12-78); ALBUMIN 2.5 G/DL (3.4-5.0); ALBUMIN/GLOBULIN RATIO 0.6 (1.1-1.5); ALKALINE PHOSPHATASE 212 IU/L (46-116); ANION GAP 7 (8-16); ASPARTATE AMINO TRANSFERASE 70 U/L (10-37); BILIRUBIN,TOTAL 1.2 MG/DL (0.1-1.0); BLOOD UREA NITROGEN 23 MG/DL (7-18); BUN/CREATININE RATIO 15.8 (5.4-32.0); CALCIUM 8.8 MG/DL (8.5-10.1); CHLORIDE 106 MMOL/L (99-107); CREATININE 1.46 MG/DL (0.60-1.10); GLUCOSE 124 MG/DL (70-104); PHOSPHORUS 2.2 MG/DL (2.3-4.5); POTASSIUM 3.4 MMOL/L (3.5-5.1); SODIUM 142 MMOL/L (135-145); TOTAL CARBON DIOXIDE 29.3 MMOL/L (24-32); TOTAL PROTEIN 6.7 G/DL (6.4-8.2); eGFR 46 ML/MIN
[2018-11-29 05:55] LABS: PARTIAL THROMBOPLASTIN TIME 28 SECONDS (22-32); PROTHROMBIN TIME 10.2 SECONDS (9.0-12.0)
--- NOTE | 2018-11-29 06:38 | NUR ---
Problems reprioritized. Patient report given, questions answered & plan of care reviewed with LEWIS Christopher.
[2018-11-29 07:00] VITALS: BP 140/77
[2018-11-29] MEDS: pantoprazole 40 MG vial IV SCH (08:48)
[2018-11-29] MEDS: aspirin 325mg tablet PO SCH (08:49)
[2018-11-29] MEDS: docusate sodium 100mg/10ml UD cup PO SCH (08:49)
[2018-11-29 08:50] VITALS: BP_SYST 140
[2018-11-29] MEDS: lisinopril 5mg tablet PO SCH (08:50)
[2018-11-29] MEDS: metoprolol tartrate 25mg tablet PO SCH (08:50)
[2018-11-29] MEDS: amLODIPine 2.5mg tablet PO SCH (08:50)
[2018-11-29] MEDS: heparin, porcine 5000 units/ml vial SQ SCH (08:51)
[2018-11-29] MEDS: potassium Cl oral solution 20 MEQ/15 ML PO PRN ×2 (08:52→13:20)
[2018-11-29] MEDS: K, MAG and/or Phos replacement - Verify level? MC SCH (08:55)
--- NOTE | 2018-11-29 11:27 | NUR ---
PAGER ID: [phone] MESSAGE: StaciA Geovanny Martins pt. phosphorus 2.2. Do you want to replace it before he leaves today. Also I have TMS for you to sign before he goes. THANK YOU Candi [phone]
[2018-11-29] MEDS ORDERED: potassium phosphate inj 30 MMOL in normal saline 500ml IV soln 490 ML IV ONE (11:50)
[2018-11-29] MEDS ORDERED: DOCU50LI22 PO (12:27)
[2018-11-29] MEDS ORDERED: PANT40TA4 PO (12:27)
[2018-11-29] MEDS ORDERED: LACT10SO32 PO (12:27)
[2018-11-29] MEDS ORDERED: AMOX-580 PO (12:27)
[2018-11-29] MEDS ORDERED: ASPI-611 PO (12:37)
--- NOTE | 2018-11-29 15:43 | NUR ---
Pt. discharged in a stable condition. Discharge paperwork reviewed with daughter, she has already picked up antibiotics and new medications. IV DC"d bandaged, no s/sx bleeding noted. Pt. escorted out of hospital in w/c with family and hospital volunteer.
== END 2018-11-29 15:35 | disposition home health service (06) | DRG 871 ==
LOC: ER 23:36 → ED HOLD 11-23 01:14 → EDBEDREQSVC 11-23 01:30 → CICU 2S 11-23 02:40 → SUR 3N 11-27 21:35
PROVIDERS: ADMIT Internal Medicine Critical Care Medicine; ATTEND Family Medicine
PROC: 0BH17EZ Insertion of Endotracheal Airway into Trachea, Via Natural or Artificial Opening (ICD-10-PCS; principal; 2018-11-22)
PROC: 5A1945Z Respiratory Ventilation, 24-96 Consecutive Hours (ICD-10-PCS; 2018-11-22)
PROC: 0FC98ZZ Extirpation of Matter from Common Bile Duct, Via Natural or Artificial Opening Endoscopic (ICD-10-PCS; 2018-11-23)
PROC: BF101ZZ Fluoroscopy of Bile Ducts using Low Osmolar Contrast (ICD-10-PCS; 2018-11-23)
DX: A41.9 Sepsis, unspecified organism (principal); J96.00 Acute respiratory failure, unspecified whether with hypoxia or hypercapnia; J18.1 Lobar pneumonia, unspecified organism; J98.11 Atelectasis; K80.31 Calculus of bile duct with cholangitis, unspecified, with obstruction; N17.9 Acute kidney failure, unspecified; K80.71 Calculus of gallbladder and bile duct without cholecystitis with obstruction; I50.20 Unspecified systolic (congestive) heart failure; I13.0 Hypertensive heart and chronic kidney disease with heart failure and stage 1 through stage 4 chronic kidney disease, or unspecified chronic kidney disease; E11.22 Type 2 diabetes mellitus with diabetic chronic kidney disease; E78.5 Hyperlipidemia, unspecified; F03.90 Unspecified dementia, unspecified severity, without behavioral disturbance, psychotic disturbance, mood disturbance, and anxiety; N18.9 Chronic kidney disease, unspecified; Z79.82 Long term (current) use of aspirin; Z86.73 Personal history of transient ischemic attack (TIA), and cerebral infarction without residual deficits; Z79.899 Other long term (current) drug therapy; Z79.84 Long term (current) use of oral hypoglycemic drugs
CPT/HCPCS: 36415; 36600; 71045; 80053; 82803; 82948; 83036; 83605; 83690; 83735; 83880; 84100; 84132; 84134; 84145; 84484; 85018; 85025; 85610; 85730; 86885; 86900; 86901; 87040; 87070; 93005; 93306; 94002; 94003; 94760; 96365; 97116; 97161; 97530; 99285; C9113; G0378; J1644; J1815; J1940; J2250; J2543; J2704; J3010; J3475; J7030; J7120; P9045; Q9967